=== PATIENT | male | born 2000 | race Caucasian/White ===

== ENCOUNTER 2019-01-06 17:14 | Emergency (ER) | payer BC ==
[2019-01-06 17:29] VITALS: RESP 18; TEMP 98.1; O2SAT 99
[2019-01-06 17:42] VITALS: BP 113/72; PULSE 80
[2019-01-06] MEDS ORDERED: SODIUM CHLORIDE 0.9% 1000ML 1,000 ML IV SCH (17:45)
[2019-01-06 18:04] LABS: CALCIUM 8.4 mg/dl (8.5-10.1); CARBON DIOXIDE 30.6 mEq/L (21-32); CREATININE 1.62 mg/dl (0.80-1.30)
== END 2019-01-06 19:26 | disposition home or self-care (01) ==
LOC: ED 17:14
DX: E86.0 Dehydration (principal); T67.9XXA Effect of heat and light, unspecified, initial encounter; R51 Headache; N17.9 Acute kidney failure, unspecified
CPT/HCPCS: 80048; 96365; 99282; 99283